=== PATIENT | male | born 2000 | race Caucasian/White ===

== ENCOUNTER 2018-12-10 07:26 | Outpatient (CLI) | payer OTHER ==
[~2018-12-10] VITALS: Ht 180.3 cm; Wt 77.0 kg
[2018-12-10 08:11] LABS: HEMATOCRIT 42.4 % (36.0-47.0); MEAN CELL VOLUME 91 fl (80.0-95.0); MEAN CORPUSCULAR HEMOGLOBIN 32 pg (26.0-32.0); MEAN CORPUSCULAR HGB CONC 35 g/dl (33.0-37.0); MEAN PLATELET VOLUME 9.4 fl (7.4-10.4); PLATELET COUNT 287 K/mm3 (130-400); RED BLOOD COUNT 4.67 M/mm3 (4.20-5.60); REDCELL DISTRIBUTION WIDTH-CV 12.7 % (11.5-14.5)
[2018-12-10 08:17] LABS: PROTHROMBIN TIME 11.3 SECONDS (9.7-12.8)
[2018-12-10 08:22] VITALS: BP 112/77; PULSE 74; TEMP 98.2
[2018-12-10 08:23] LABS: POTASSIUM 3.9 mmol/L (3.4-5.0)
[2018-12-10 08:24] LABS: CALCIUM 9.4 mg/dL (8.4-10.2); CREATININE, serum 0.99 mg/dL (0.66-1.25)
[2018-12-10 09:30] VITALS: BP 116/80; PULSE 63
--- NOTE | 2018-12-10 09:30 | NUR ---
Report from Clint Canseco RN, pt odalys BALWINDER well. Pt resting well in bed.
[2018-12-10] MEDS ORDERED: COREG 3.123.125 MG/T PO (09:44)
[2018-12-10 09:45] VITALS: BP 106/65; PULSE 86
[2018-12-10 10:00] VITALS: BP 116/80; PULSE 86
[2018-12-10 10:15] VITALS: BP 108/78; PULSE 82
--- NOTE | 2018-12-10 10:15 | NUR ---
Pt has ambulated and odalys PO intake s n/v. PIV removed with catheter intact.
--- NOTE | 2018-12-10 10:30 | NUR ---
Pt discharged per w/c by nurse with friend.
== END 2018-12-10 10:34 | disposition home or self-care (01) ==
LOC: EUO 07:26 → COL.RAD 07:30 → EUO 10:34
PROVIDERS: Internal Medicine Cardiovascular Disease
DX: R55 Syncope and collapse (principal)
CPT/HCPCS: J2704

== ENCOUNTER → 2018-12-20 | Outpatient (CLI) | payer OTHER ==
[~2018-12-20] MED LIST: COREG 3.123.125 MG/T PO
== END ==
LOC: COL.RAD 08:00
DX: I77.810 Thoracic aortic ectasia (principal)
CPT/HCPCS: Q9967

== ENCOUNTER 2019-04-29 08:01 | Outpatient (CLI) | payer OTHER ==
[~2019-04-29] VITALS: Ht 180.3 cm; Wt 84.5 kg
[2019-04-29 08:47] VITALS: BP 116/73; PULSE 56; TEMP 97.9
[2019-04-29] MEDS ORDERED: COREG 3.123.125 MG/T PO (08:49)
[2019-04-29 11:00] VITALS: BP 101/72; PULSE 52; TEMP 97.9
--- NOTE | 2019-04-29 11:00 | NUR ---
Back from Lpn by john. Alert and oriented. VSS.
[2019-04-29 11:15] VITALS: BP 98/74; PULSE 57; TEMP 97.9
[2019-04-29 11:30] VITALS: BP 102/72; PULSE 62; TEMP 97.9
[2019-04-29 11:45] VITALS: BP 105/65; PULSE 56; TEMP 97.9
[2019-04-29 12:00] VITALS: BP 101/72; PULSE 63; TEMP 97.9
--- NOTE | 2019-04-29 12:00 | NUR ---
Ambulated in [place]. INT discontinued intact. Discharge instructions given. Transferred to private car by john
== END 2019-04-29 12:00 | disposition home or self-care (01) ==
LOC: COL.CAR 08:01
DX: R55 Syncope and collapse (principal); Q23.1 Congenital insufficiency of aortic valve; Z83.3 Family history of diabetes mellitus; Z82.49 Family history of ischemic heart disease and other diseases of the circulatory system; Z87.891 Personal history of nicotine dependence